=== PATIENT | female | born 1990 | race Two or more races ===

== ENCOUNTER 2023-06-10 11:24 | Outpatient (CLI) | payer OTHER | END 2023-06-10 11:26 | disposition home or self-care (01) | LOC: PRENATAL 11:24 | PROVIDERS: ATTEND Obstetrics & Gynecology Maternal & Fetal Medicine | DX: O35.3XX0 Maternal care for (suspected) damage to fetus from viral disease in mother, not applicable or unspecified (principal); O44.00 Complete placenta previa NOS or without hemorrhage, unspecified trimester; O28.5 Abnormal chromosomal and genetic finding on antenatal screening of mother; O09.529 Supervision of elderly multigravida, unspecified trimester; Z3A.26 26 weeks gestation of pregnancy ==

== ENCOUNTER 2023-07-01 10:04 | Outpatient (CLI) | payer OTHER | END 2023-07-01 10:05 | disposition home or self-care (01) | LOC: PRENATAL 10:04 | PROVIDERS: ATTEND Obstetrics & Gynecology Maternal & Fetal Medicine | DX: O26.849 Uterine size-date discrepancy, unspecified trimester (principal); O28.5 Abnormal chromosomal and genetic finding on antenatal screening of mother; O09.529 Supervision of elderly multigravida, unspecified trimester; O36.5990 Maternal care for other known or suspected poor fetal growth, unspecified trimester, not applicable or unspecified; Z3A.29 29 weeks gestation of pregnancy ==

== ENCOUNTER → 2023-07-23 09:50 | Outpatient (CLI) | payer OTHER | END | disposition home or self-care (01) | LOC: PRENATAL 09:50 | PROVIDERS: ATTEND Obstetrics & Gynecology Maternal & Fetal Medicine | DX: O26.849 Uterine size-date discrepancy, unspecified trimester (principal); O36.8199 Decreased fetal movements, unspecified trimester, other fetus; O28.5 Abnormal chromosomal and genetic finding on antenatal screening of mother; O09.529 Supervision of elderly multigravida, unspecified trimester; O36.5990 Maternal care for other known or suspected poor fetal growth, unspecified trimester, not applicable or unspecified; Z3A.32 32 weeks gestation of pregnancy ==

== ENCOUNTER 2023-08-19 09:46 | Outpatient (CLI) | payer OTHER | END 2023-08-19 09:47 | disposition home or self-care (01) | LOC: PRENATAL 09:46 | PROVIDERS: ATTEND Obstetrics & Gynecology Maternal & Fetal Medicine | DX: O26.849 Uterine size-date discrepancy, unspecified trimester (principal); O36.8199 Decreased fetal movements, unspecified trimester, other fetus; O28.5 Abnormal chromosomal and genetic finding on antenatal screening of mother; O09.529 Supervision of elderly multigravida, unspecified trimester; O36.5990 Maternal care for other known or suspected poor fetal growth, unspecified trimester, not applicable or unspecified; Z3A.36 36 weeks gestation of pregnancy ==